=== PATIENT | male | born 1945 | race Caucasian/White ===

== ENCOUNTER 2020-05-14 13:24 | Observation (INO) | payer MEDICARE ==
[~2020-05-14] VITALS: Ht 175.3 cm; Wt 62.2 kg
[~2020-05-14 13:24] MED LIST: ASPIRIN ADULT L81 MG PO; ASPIRIN81 MG PO; CO Q 1010 MG PO; DONEPEZIL5 MG PO; FINASTERIDE5 MG PO; FLUOXETINE10 M2 PO; FLUOXETINE20 MG PO; MELATONIN PO; MELOXICAM7.5 MG PO; OMEPRAZOLE20 M2 PO; PRAVASTATIN20 MG PO; PRILOSEC20 MG/CAP PO
--- NOTE | 2020-05-14 13:25 | NUR ---
PT TO ROOM VIA EMS STRETCHER FOR BEDSIDE TRIAGE
[2020-05-14 14:23] LABS: IMMATURE GRANULOCYTES 0.3 % (0.0-5.0); MEAN CORPUSCULAR HGB 32.5 pG CALC (26.0-32.0); MEAN CORPUSCULAR HGB CONC 33.3 g/dL CAL (32.0-36.0); NEUT# 4.92 thou/uL (1.82-7.42); RED BLOOD COUNT 3.78 mill/uL (4.70-6.10); RED CELL DISTRI WIDTH 15.2 % (11.5-15.5)
[2020-05-14 14:30] LABS: HEMATOCRIT 36.9 % (39.0-50.0); HEMOGLOBIN 12.3 g/dl (14.0-18.0); MEAN CELL VOLUME 97.6 fL CALC (80.0-100.0)
--- NOTE | 2020-05-14 14:40 | NUR ---
PT UNABLE TO PROVIDE URINE AT THIS TIME. TAKEN TO RADIOLOGY FOR IMAGING.
[2020-05-14 14:53] LABS: ALBUMIN 3.7 g/dL (3.2-5.0); ALKALINE PHOSPHATASE 52 u/l (38-126); ANION GAP 8 (6-22 (CALC)); BILIRUBIN, TOTAL 0.7 mg/dL (0.0-1.4); BUN 18 mg/dL (8-23); BUN/CREATININE RATIO 14 (12-20 (CALC)); CARBON DIOXIDE 30 mmol/l (22-30); CHLORIDE 101 mmol/l (95-108); CREATININE 1.3 mg/dL (0.7-1.3); GFR 54 ML/MIN (>=60 (CALC)); GFR FOR AFR.AMER. > 60 ML/MIN (>=60 (CALC)); POTASSIUM 4.7 mmol/l (3.5-5.1); SGOT/AST 16 u/l (19-48); SODIUM 134 mmol/l (137-146); TOTAL PROTEIN 5.9 g/dL (6.3-8.2)
--- NOTE | 2020-05-14 16:00 | NUR ---
PT RESTING, COMFORTABLY, NO SIGNS OF DISTRESS. AT BEDSIDE. IV FLUIDS INFUSING WITHOUT COMPLICATIONS. BED IN LOW POSITION, CALL LIGHT WITHIN REACH.
--- NOTE | 2020-05-14 16:21 | NUR ---
SBAR PRINTED TO FLOOR
--- NOTE | 2020-05-14 17:00 | NUR ---
REPORT CALLED TO [facility] ON [facility]. REMAINS AT BEDSIDE. VITALS STABLE. IV FLUIDS COMPLETED.
--- NOTE | 2020-05-14 17:03 | NUR ---
RECIEVED REPORT FROM Solange CORDON RN. PowerMetal TechnologiesITTER INFORMED THAT URINE WAS STILL NEEDED. [employer] WAS INFORMED THAT KAUR CANTU STATED THAT STRIAGHT CATH WAS NOT NECESSARY.
--- NOTE | 2020-05-14 17:16 | NUR ---
PT ARRIVED TO [facility] ROOM 271 VIA STRETCHER IN STABLE CONDITION ACCOMPAINED BY Solange CORDON RN AND . PT TRANSFERED FROM STRETCHER TO BED WITH LITTLE DIFFICULTY.INTRODUCED SELF TO PT AND DISCUSSED POC. PT IS A/O TO SELF ONLY. HISORTY OF DEMENTIA NOTED. ASSESSMENT AND VITALS COMPLETED AT THIS TIME. BP 144/81, HR 102, O2 97% ON ROOM AIR. RESPIRATIONS ARE EVEN AND UNLABORED WITH NO SIGNS OF DISTRESS NOTED. LUNG SOUNDS ARE CLEAR. HEART RHYTHM IS NORMAL WITH TELE IN PLACE. BOWEL SOUNDS ARE ACTIVE IN ALL QUADRANTS, LAST REPORTED BM 05/14/20. #20 IN RAC FLUSHED,SITE APPEARS HEALTHY AND PATENT. ORDERS FOR NS TO BE STARTED AT 75 ML. ORDERS SENT TO PHARMACY. OF PT INFORMS Court[employer]TER THAT HE PRESENTED TO ER FOR FALLS X4 TODAY. PT PRESENTS WITH BOOT ON LEFT LEG.FALL RISK BAND APPLIED.PT DENIES ANY ALLERGIES. ALLERGY BAND APPLIED. PT DENEIS OF ANY PAIN OR DISCOMFORTS AT THIS TIME. PT PRESENTS WITH SCABBED WOUND ON RIGHT LEG AND BLACK SCABBED AREA ON LEFT ARMS. SKIN IS WARM/ DRY/ INTACT. PT ORIENETED TO ROOM AND CALL LIGHT SYSTEM. WRITTER WAS INFORMED THAT WILL BE STAYING WITH PT DUE TO DEMENTIA. SKEET OPERATOR NOTIFIED. ALL SAFTEY PRECAUTIONS ARE IN PLACE WITH CALL LIGHT IN REACH.WILL CONTINUE TO MONITOR
[2020-05-14 17:20] VITALS: BP 144/81
[2020-05-14 18:02] LABS: URINE BILIRUBIN - DIPSTICK NEGATIVE (NEGATIVE); URINE BLOOD DIPSTICK NEGATIVE (NEGATIVE); URINE COLOR YELLOW; URINE GLUCOSE - DIPSTICK NEGATIVE (NEGATIVE); URINE KETONE 15 mg/dL (NEGATIVE); URINE LEUK ESTERASE NEGATIVE (NEGATIVE); URINE NITRITE - DIPSTICK NEGATIVE (Negative); URINE PROTEIN - DIPSTICK NEGATIVE (NEG-TRACE); URINE UROBILINOGEN - DIPSTICK 0.2 E.U./dL (0.2)
--- NOTE | 2020-05-14 18:34 | NUR ---
URINE SPECIMINE COLLECTED.
--- NOTE | 2020-05-14 19:01 | NUR ---
REPORT FROM VU TRAYLOR. PT NOTED RESTING IN BED WATCHING TV WITH AT BEDSIDE. PT ALERT AND ORIENTED TO SELF, CONFUSION NOTED. NO APPARENT DISTRESS NOTED. RESPIRATIONS EVEN AND UNLABORED. WALKING BOOT NOTED TO LLE. NO APPARENT SWELLING, PULSE NOTED WITH GOOD CAPILLARY REFILL. PT DENIES ANY PAIN OR DISCOMFORT. IV SITE APPEARS HEALTHY WITH IVF INFUSING. DISCUSSED POC WITH PT AND . BOTH VERBALIZED UNDERSTANDING. WARM BLANKETS PROVIDED AT THIS TIME. PT AND BOTH DENIES ANY OTHER CURRENT WANTS OR NEEDS. CALL LIGHT WITHIN REACH. WILL CONTINUE TO MONITOR.
[2020-05-14 19:23] VITALS: BP 120/73
--- NOTE | 2020-05-14 21:44 | NUR ---
HOME MEDICATION MELATONIN NOT CARRIED BY PHARMACY OR AVAILABLE IN [facility]. AT BEDSIDE STATES PT TAKES TRAZADONE 50MG AT HOME FOR SLEEP WELL. NOTIFIED IRON MELTER PHYSICIAN, ORDERS RECEIVED AT THIS TIME. WILL MEDICATED WHEN PROFILED.
[2020-05-15 00:08] VITALS: BP 147/68
--- NOTE | 2020-05-15 00:08 | NUR ---
PT RESTING IN BED WITH EYES CLOSED. NO APPARENT DISTRESS NOTED. REMAINS AT BEDSIDE. VSS. CALL LIGHT WITHIN REACH. WILL CONTINUE TO MONITOR.
--- NOTE | 2020-05-15 04:15 | NUR ---
PT RESTING IN BED. NO APPARENT DISTRESS NOTED. STATES PT WENT BATHROOM AND VOIDED X2 THROUGHOUT NIGHT. PT DENIES ANY PAIN AT THIS TIME. CALL LIGHT WITHIN REACH. WILL CONTINUE TO MONITOR.
[2020-05-15 04:58] VITALS: BP 152/67
[2020-05-15 05:00] LABS: HEMATOCRIT 33.7 % (39.0-50.0); HEMOGLOBIN 10.7 g/dl (14.0-18.0); IMMATURE GRANULOCYTES 0.4 % (0.0-5.0); MEAN CELL VOLUME 99.7 fL CALC (80.0-100.0); MEAN CORPUSCULAR HGB 31.7 pG CALC (26.0-32.0); MEAN CORPUSCULAR HGB CONC 31.8 g/dL CAL (32.0-36.0); NEUT# 2.49 thou/uL (1.82-7.42); RED BLOOD COUNT 3.38 mill/uL (4.70-6.10); RED CELL DISTRI WIDTH 15.3 % (11.5-15.5)
[2020-05-15 05:11] LABS: ALKALINE PHOSPHATASE 41 u/l (38-126); ANION GAP 7 (6-22 (CALC)); BILIRUBIN, TOTAL 0.6 mg/dL (0.0-1.4); BUN 17 mg/dL (8-23); BUN/CREATININE RATIO 16 (12-20 (CALC)); CARBON DIOXIDE 27 mmol/l (22-30); CHLORIDE 106 mmol/l (95-108); GFR > 60 ML/MIN (>=60 (CALC)); GFR FOR AFR.AMER. > 60 ML/MIN (>=60 (CALC)); POTASSIUM 4.2 mmol/l (3.5-5.1); SGOT/AST 18 u/l (19-48); SODIUM 135 mmol/l (137-146); TOTAL PROTEIN 5.3 g/dL (6.3-8.2)
--- NOTE | 2020-05-15 07:00 | NUR ---
REPORT RECEIVED FROM KYMBERLY KATE;PT APPEARS TO BE SLEEPING IN SEMI FOWLERS POSITION WITH SPOUSE AT BEDSIDE;NO S/S OF DISTRESS NOTED;RESPIRATIONS EVEN AND UNLABORED ON RA;TELE MONITORING IN PLACE;ALL SAFETY PRECAUTIONS NOTED WITH BED IN THE LOWEST POSITION AND CALL LIGHT IN REACH;WILL CONTINUE TO MONITOR
--- NOTE | 2020-05-15 07:33 | NUR ---
PT note Patient is screened for PT intervention and he would benefit from consult if medical agrees
[2020-05-15 08:35] VITALS: BP 151/69
--- NOTE | 2020-05-15 08:35 | NUR ---
PT RESTING IN SEMI FOWLERS POSITION WITH SPOUSE AT BEDSIDE,A&O X1 BUT EASILY RE-ORIENTED;VS OBTAINED AND ASSESSMENT COMPLETED;PT DENIES ANY CURRENT PAIN OR DISCOMFORTS,PAIN SCALE AND REPORTING EDUCATED;RESPIRATIONS EVEN AND UNLABORED ON RA,CLEAR LUNG SOUNDS;ABDOMEN SOFT ON PALPATION AND ACTIVE IN ALL 4 QUADRANTS;SKIN INTACT;WEAK PEDAL PULSES;LLE WALKING BOOT IN PLACE WITH GOOD CAP REFILL, LESS THAN 3 SECONDS TO TOES;TELE MONITORING IN PLACE;#20G TO RAC INFUSING NS @ 75ML/HR PER ORDER,SITE APPEARS HEALTHY;PT DENIES ANY ADDITIONAL NEEDS AT THIS TIME AND IS ENCOURAGED TO CALL FOR ASSISTANCE IF NEEDED;FALL PRECAUTIONS IN PLACE WITH BED IN THE LOWEST POSITION AND CALL LIGHT IN REACH;WILL CONTINUE TO MONITOR
--- NOTE | 2020-05-15 08:42 | NUR ---
AT BEDSIDE DISCUSSING POC WITH PT AND SPOUSE.
[2020-05-15] MEDS ORDERED: TAMSULOSIN0.4 MG PO (10:31)
[2020-05-15] MEDS ORDERED: TRAZODONE50 MG PO (10:32)
[2020-05-15] MEDS ORDERED: PLAVIX75 MG PO (10:35)
[2020-05-15] MEDS ORDERED: MIDODRINE5 MG PO (10:36)
[2020-05-15 10:39] VITALS: BP 163/80
--- NOTE | 2020-05-15 11:48 | NUR ---
ALL DISCHARGE INSTRUCTIONS PROVIDED TO PT AND SPOUSE;PT INSTRUCTED TO F/U WITH PCP AND TITLE EXAMINER, CHANGE POSITIONS SLOWLY AND LAY DOWN IF HE FEELS HE IS GOING TO PASS OUT, TAKE MIDRODINE TID DIRECTED;PT VERBALIZES UNDERSTANDING AND DENIES ANY ADDITIONAL QUESTIONS OR NEEDS;IV REMOVED WITH CATHETER INTACT AND TELE MONITORING D/C;WHEELCHAIR TO BE PROVIDED FOR D/C HOME;SPOUSE TO TRANSPORT PT HOME;WILL CONTINUE TO MONITOR
--- NOTE | 2020-05-15 11:56 | NUR ---
Discharge instructions given. Patient verbalizes understanding of same. Discharged in stable condition via Wheelchair to Home with spouse. All belongings sent with pt. PT TRANSPORTED TO [facility] IN STABEL CONDITION VIA WHEELCHAIR ACCOMPANIED BY BRY GAR AND SPOUSE;ALL BELONGINGS LEFT WITH PT;SPOUSE TO TRANSPORT PT HOME.
== END 2020-05-15 11:56 | disposition home health service (06) ==
LOC: ED 13:24 → ED-I 15:35 → ED 16:19 → MS2 16:20
PROVIDERS: ADMIT Internal Medicine; ATTEND Internal Medicine
DX: I95.1 Orthostatic hypotension (principal); S92.332A Displaced fracture of third metatarsal bone, left foot, initial encounter for closed fracture; S92.342A Displaced fracture of fourth metatarsal bone, left foot, initial encounter for closed fracture; I25.10 Atherosclerotic heart disease of native coronary artery without angina pectoris; F03.90 Unspecified dementia, unspecified severity, without behavioral disturbance, psychotic disturbance, mood disturbance, and anxiety; N40.0 Benign prostatic hyperplasia without lower urinary tract symptoms; F32.9 Major depressive disorder, single episode, unspecified; K21.9 Gastro-esophageal reflux disease without esophagitis; I25.2 Old myocardial infarction; W19.XXXA Unspecified fall, initial encounter; Y92.009 Unspecified place in unspecified non-institutional (private) residence as the place of occurrence of the external cause; Z91.81 History of falling; Z98.1 Arthrodesis status; Z86.73 Personal history of transient ischemic attack (TIA), and cerebral infarction without residual deficits; Z20.828 Contact with and (suspected) exposure to other viral communicable diseases
CPT/HCPCS: G0378